=== PATIENT | female | born 1980 | race Caucasian/White ===

== ENCOUNTER 2023-05-14 11:12 | Outpatient (OUT) | payer BC, SELFPAY ==
--- NOTE | 2023-05-14 | MM_ITS ---
Patient: SHEYLA MARQUEZ Exam Date: 05/14/2023 : 1980 Gender:F Ordering : DR. SHANE LUKE . Admission #: [id number] Family : Order #: [id number] CLICK HERE TO VIEW EXAM RADIOLOGY REPORT PROCEDURE: MM TOMOSYNTHESIS SCREENING BI COMPARISON: None. INDICATIONS: Screening mammogram Z12.31 Calculator Name NCI Breast Cancer Risk Assessment Tool 5 Year Breast Cancer Risk 0.60% Lifetime Breast Cancer Risk 9.80% Personal Breast Cancer No Personal Ovarian Cancer No Treatments None Family Cancers None LOCATION: [facility] BREAST COMPOSITION: Heterogeneously dense,which may obscure small masses. FINDINGS: DIAGNOSTIC CATEGORY 2--BENIGN FINDING: Scattered benign-appearing nodules are present. Scattered benign-appearing calcifications are present. Scattered benign-appearing lymph nodes are present. RIGHT BREAST: No significant suspicious finding. LEFT BREAST: No significant suspicious finding. RECOMMENDATIONS: ROUTINE MAMMOGRAM AND CLINICAL EVALUATION IN 12 MONTHS. PLEASE NOTE: A NORMAL MAMMOGRAM DOES NOT EXCLUDE THE POSSIBILITY OF BREAST CANCER. A CLINICALLY SUSPICIOUS PALPABLE LUMP SHOULD BE BIOPSIED. Dictated by: Matteo Minaya MD on 05/14/2023 at 15:24 Approved by: Matteo Minaya MD on 05/14/2023 at 15:25
--- NOTE | 2023-05-14 | XR_ITS ---
The [address] [address] Patient Name: SHEYLA MARQUEZ MRN: [id number] date: 1980 Sex: F Assigned Patient Location: [facility] Current Patient Location: [facility] Accession/Order Number: [id number] Exam Date: 05/14/2023 11:29 Report Date: 05/14/2023 20:25 At the request of: SHANE LUKE Procedure: XR foot RT min 3V EXAM: XR foot RT min 3V HISTORY: Right foot pain , especially the great toe. The patient had an injury one year ago. COMPARISON: None. TECHNIQUE: 3 views of the right foot were obtained. FINDINGS: There is no evidence of an acute fracture or dislocation. Mild to very mild degenerative changes are seen at the first metatarsophalangeal joint with small osteophytes arising from the metatarsal head. The joint spaces are otherwise intact. No abnormal soft tissue calcifications are present. Mild soft tissue swelling of the foot is noted. XR/XR foot RT min 3V IMPRESSION: Mild to very mild degenerative changes are present at the first metatarsophalangeal joint. Study is otherwise unremarkable without evidence of fracture, dislocation or apparent degenerative change. Electronically authenticated by: BAY LEES Date: 05/14/2023 20:25
== END 2023-05-14 11:13 | disposition home or self-care (01) ==
PROVIDERS: PCP Family Medicine; Visit Provider Family Medicine
DX: M79.671 Pain in right foot (principal); Z12.31 Encounter for screening mammogram for malignant neoplasm of breast
CPT/HCPCS: 73630; 77063; 77067